=== PATIENT | male | born 1950 | race American Indian/Alaskan Native ===

== ENCOUNTER → 2017-11-04 12:46 | Outpatient (CLI) | payer MEDICARE, OTHER, SELFPAY ==
--- NOTE | 2017-11-04 | DI.US.S_ITS ---
PROCEDURE: US ABD AORTA ANEURYSM SCREEN INDICATIONS: AAA SCREEN TECHNIQUE: Real time scanning was performed of the aorta and iliac arteries, with image documentation. COMPARISON: None. FINDINGS: Aorta: Proximal aorta is obscured by bowel gas. Mid-aorta measures 2.0 cm. Distal aortic diameter is 1.7 cm. Iliac arteries: Right common iliac artery measures 1.0 cm. Left common iliac artery measures 0.1 cm. IMPRESSION: Negative for aneurysm. Proximal aorta is obscured Dictated by: Ian Horner M.D. on 11/04/2017 at 13:38 Approved by: Ian Horner M.D. on 11/04/2017 at 13:39
== END ==
PROVIDERS: Family Provider Family Medicine; PCP Family Medicine; Visit Provider Family Medicine
DX: Z13.6 Encounter for screening for cardiovascular disorders (principal)
CPT/HCPCS: 76706

== ENCOUNTER → 2020-08-20 10:44 | Outpatient (CLI) | payer MEDICARE, SELFPAY ==
[2020-08-20] MEDS: COVID-19 VACC, Ad26(JANSSEN)/PF 0.5 ML IM (10:55)
== END ==
PROVIDERS: Visit Provider Internal Medicine
DX: Z23 Encounter for immunization (principal)
CPT/HCPCS: 0031A; 91303

== ENCOUNTER → 2023-08-31 10:26 | Outpatient (CLI) | payer MEDICARE, SELFPAY ==
[2023-08-31 11:13] LABS: Add Manual Diff / Slide Review NO; Basophils Absolute Auto 0 /uL (0-100); Basophils Percent Auto 0.3 % (0-2); Eosinophils Absolute Auto 300 /uL (0-450); Eosinophils Percent Auto 3.7 % (2-4); Hematocrit 44.8 % (41-53); Hemoglobin 15.2 g/dL (13.5-17.5); Lymphocytes Absolute Auto 1300 /uL (1100-4500); Lymphocytes Percent Auto 17.4 % (25-40); Mean Corpuscular HGB Conc 33.8 % (30-36); Mean Corpuscular Hemoglobin 35.1 PG (26-34); Mean Corpuscular Volume 103.7 fL (80-100); Monocytes Absolute Auto 1300 /uL (0-900); Monocytes Percent Auto 17.1 % (3-14); Neutrophils Absolute Auto 4600 /uL (1500-7000); Neutrophils Percent Auto 61.5 % (50-75); Platelet Count 180 X10^3/uL (150-400); Red Blood Cell Count 4.32 X10^6/uL (4.5-5.9); Red Cell Distribution Width 13.5 % (11.6-14.8); White Blood Cell Count 7.4 X10^3/uL (4.5-11.0)
[2023-08-31 11:50] LABS: Alanine Aminotransferase 15 IU/L (<50); Albumin 4.1 g/dL (3.5-5.0); Albumin Globulin Ratio 1.3 (1.0-2.8); Alkaline Phosphatase 105 U/L (38-126); Aspartate Aminotransferase 24 IU/L (17-59); BUN Creatinine Ratio 17.3 (6-22); Bilirubin Total 0.8 mg/dL (0.2-1.3); Blood Urea Nitrogen 13 mg/dL (9-20); Calcium 9.5 mg/dL (8.4-10.2); Carbon Dioxide 31 mmol/L (22-32); Chloride 107 mmol/L (98-107); Cholesterol 186 mg/dL (140-199); Estimated Glomerular Filt Rate > 60 mL/min (>60); Globulin 3.2 g/dL (1.7-4.1); Glucose 111 mg/dL (80-110); HDL Cholesterol 64 mg/dL (40-60); HEMOLYSIS < 15 (0-50); LDL Cholesterol Calculated 104 mg/dL (<100); Potassium 3.7 mmol/L (3.4-5.1); Sodium 141 mmol/L (137-145); Total Protein 7.3 g/dL (6.3-8.2); Triglycerides 88 mg/dL (35-150)
[2023-08-31 16:31] LABS: Hep C Virus Ab w/Reflex Quant NEGATIVE s/c (NEGATIVE)
== END ==
PROVIDERS: PCP Family Medicine; Referring Provider Family Medicine; Visit Provider Family Medicine
DX: E78.5 Hyperlipidemia, unspecified (principal); Z13.220 Encounter for screening for lipoid disorders; Z11.59 Encounter for screening for other viral diseases; E87.8 Other disorders of electrolyte and fluid balance, not elsewhere classified; Z13.9 Encounter for screening, unspecified; D64.9 Anemia, unspecified
CPT/HCPCS: 36415; 80053; 80061; 85025; 86803

== ENCOUNTER → 2024-04-08 17:13 | Outpatient (CLI) | payer MEDICARE, SELFPAY ==
[2024-04-08 17:51] LABS: Crystals Body Fluid - IN-HOUSE NONE Present
[2024-04-08 17:54] LABS: Body Fluid Red Blood Cells 68301 /uL; Body Fluid Tot Nucleated Cells 217 /uL
[2024-04-08 18:37] LABS: Body Fluid Appearance CLOUDY; Body Fluid Clotted? NO CLOTS PRESENT; Body Fluid Color BLOODY
[2024-04-08 19:15] LABS: Lymphocytes Body Fluid 79 %; Neutrophils Body Fluid 21 %
== END ==
PROVIDERS: PCP Family Medicine; Referring Provider Family Medicine; Visit Provider Family Medicine
DX: M25.422 Effusion, left elbow (principal); S88.111D Complete traumatic amputation at level between knee and ankle, right lower leg, subsequent encounter; S88.111A Complete traumatic amputation at level between knee and ankle, right lower leg, initial encounter; G54.6 Phantom limb syndrome with pain
CPT/HCPCS: 87070; 87075; 87205; 89051; 89060

== ENCOUNTER 2025-04-14 15:52 | Emergency (ER) | payer MEDICARE, SELFPAY ==
[2025-04-14 15:55] VITALS: BP 140/69; PULSE 62; RESP 18; TEMP 36.9; O2SAT 98; BMI 24.4
--- NOTE | 2025-04-14 16:04 | ED_ITS ---
HPI - Extremity Problem
--- NOTE | 2025-04-14 16:04 | ED.EXTPRO ---
HPI - Extremity Problem <Lexus Dee PA-C - Last Filed: 04/14/25 19:06> General Chief complaint: Extremity Problem,Nontraumatic Stated complaint: PC ref , poss blood clot Time Seen by Provider: 04/14/25 15:57 Source: patient Mode of arrival: Ambulatory History of Present Illness HPI Narrative: Mr. Clayton is a pleasant 74-year-old male with a past medical history of right BKA following a trauma in 2007 who presents to the emergency department for DVT rule out for concern of pain and swelling behind the right knee x1 week. Patient denies any injury or change to his prosthetic device that precipitated the symptoms. He is now having pain and swelling behind the right knee. No fevers, chills, redness or skin changes. No history of VTE. No chest pain or shortness of breath, flu-like symptoms, abdominal pain, groin pain, or other concerns. He denies recent fall, trauma, history of hemorrhagic stroke, recent surgery, GI bleeding, or any other bleeding concerns. Related Data Previous Rx's ?Medication ?Instructions ?Recorded Prosthetic liners #12 ea 09/15/23 replacement of prosthesis or major #1 ea 06/23/24 component socket tadalafil 10 mg tablet 10 mg PO DAILY PRN sexual activity 12/30/24 #30 tabs topiramate 200 mg tablet 200 mg PO QID #360 tabs 01/09/25 gabapentin 600 mg tablet 1,200 mg (2 x 600 mg) PO 3XD #540 01/20/25 tabs nortriptyline 25 mg capsule 25 mg PO BEDTIME #30 caps 03/29/25 apixaban 5 mg (74 tabs) tablets in See Rx Instructions PO .COMPLEX 04/14/25 a dose pack (Eliquis DVT-PE Treat #74 ea 30D Start) Allergies Allergy/AdvReac Type Severity Reaction Status Date / Time No Known Drug Allergies Allergy Verified 04/14/25 15:55 Review of Systems <Lexus Dee PA-C - Last Filed: 04/14/25 19:06> Review of Systems ROS Unobtainable: All systems reviewed & are unremarkable except as noted in HPI and below Patient History <Lexus Dee PA-C - Last Filed: 04/14/25 19:06> Medical History Hearing decreased Measles Surgical History Myxoma Family History Father Cancer Mother Dementia History of heart disease Brother Stroke Grandfather Cancer Social History Tobacco: How many years used: 32 alcohol intake: current substance use type: does not use Exam <Lexus Dee PA-C - Last Filed: 04/14/25 19:06> Narrative Exam Narrative: GENERAL: 74 year old patient appears stated age. Well-developed patient, in no acute distress. HEAD: Atraumatic. Normocephalic. EYES: No scleral icterus. No injection or drainage. ENT: Nose without bleeding, purulent drainage. Throat without erythema, tonsillar hypertrophy or exudate. Airway patent. NECK: Trachea midline. Cervical ROM intact. CARDIOVASCULAR: Regular rate RESPIRATORY: ?Nonlabored respirations. ?Speaking in clear, full sentences. ? EXTREMITIES: Right BKA. Prosthetic removed. No erythema or color change of the patient's stump. He does have tenderness to palpation of the right popliteal fossa. No edema of the leg compared to the left leg. NEURO: AOx3. ?Clear speech. ?Moves all 4 extremities appropriately. SKIN: No rash or erythema of visible areas. Initial Vital Signs Initial Vital Signs: Vital Signs Temperature 98.5 F 04/14/25 15:55 Pulse Rate 62 04/14/25 15:55 Respiratory Rate 18 04/14/25 15:55 Blood Pressure 140/69 04/14/25 15:55 Pulse Oximetry 98 04/14/25 15:55 Oxygen Delivery Method Room Air 04/14/25 15:55 <Madeleine Lamb DO - Last Filed: 04/17/25 13:20> Initial Vital Signs Initial Vital Signs: Vital Signs Temperature 98.5 F 04/14/25 15:55 Pulse Rate 62 04/14/25 15:55 Respiratory Rate 18 04/14/25 15:55 Blood Pressure 140/69 04/14/25 15:55 Pulse Oximetry 98 04/14/25 15:55 Oxygen Delivery Method Room Air 04/14/25 15:55 Course <Lexus Dee PA-C - Last Filed: 04/14/25 19:06> Orders Ordered: Discontinued Medications Acetaminophen (Acetaminophen 650 Mg Supp) 650 mg HI NOW ONE Stop: 04/14/25 16:15 Last Admin: 04/14/25 17:09 Dose: Not Given Documented By: RUBY Acetaminophen (Acetaminophen 325 Mg Tablet) 650 mg PO NOW ONE Stop: 04/14/25 17:00 Last Admin: 04/14/25 17:11 Dose: 650 mg Documented By: RUBY Apixaban (Apixaban 5 Mg Tablet) 10 mg PO NOW ONE Stop: 04/14/25 18:08 Last Admin: 04/14/25 18:16 Dose: 10 mg Documented By: MARAH Ibuprofen (Ibuprofen 400 Mg Tablet) 400 mg PO NOW ONE Stop: 04/14/25 16:15 Last Admin: 04/14/25 17:11 Dose: Not Given Documented By: RUBY Vital Signs Vital signs: Vital Signs - 8 hr 04/14/25 15:55 04/14/25 18:18 Temperature 98.5 F Pulse Rate 62 64 Respiratory Rate 18 Blood Pressure 140/69 131/95 H Pulse Oximetry 98 92 Oxygen Delivery Method Room Air Room Air <Madeleine Lamb DO - Last Filed: 04/17/25 13:20> Orders Ordered: Discontinued Medications Acetaminophen (Acetaminophen 650 Mg Supp) 650 mg HI NOW ONE Stop: 04/14/25 16:15 Last Admin: 04/14/25 17:09 Dose: Not Given Documented By: RUBY Acetaminophen (Acetaminophen 325 Mg Tablet) 650 mg PO NOW ONE Stop: 04/14/25 17:00 Last Admin: 04/14/25 17:11 Dose: 650 mg Documented By: RUBY Apixaban (Apixaban 5 Mg Tablet) 10 mg PO NOW ONE Stop: 04/14/25 18:08 Last Admin: 04/14/25 18:16 Dose: 10 mg Documented By: MARAH Ibuprofen (Ibuprofen 400 Mg Tablet) 400 mg PO NOW ONE Stop: 04/14/25 16:15 Last Admin: 04/14/25 17:11 Dose: Not Given Documented By: RUBY Vital Signs Vital signs: Vital Signs - 8 hr 04/14/25 15:55 04/14/25 18:18 Temperature 98.5 F Pulse Rate 62 64 Respiratory Rate 18 Blood Pressure 140/69 131/95 H Pulse Oximetry 98 92 Oxygen Delivery Method Room Air Room Air MDM - Extremity (Nontraumatic) <Lexus Dee PA-C - Last Filed: 04/14/25 19:06> Medical Records Attestation: I reviewed the patient's medical records. MDM Narrative Medical decision making narrative: 74-year-old male with a past medical history of right BKA following a trauma in 2007 who presents to the emergency department for DVT rule out for concern of pain and swelling behind the right knee x1 week. Differential diagnosis includes but isn't limited to DVT, SVT, Franco's cyst, knee arthritis, etc. On exam patient is in no acute distress, nontoxic-appearing, all vital signs within normal limits. He has tenderness to palpation of the right popliteal fossa. Given tenderness, patient sensation of swelling, we will obtain venous ultrasound and x-ray right knee. We will treat pain with Tylenol. Knee x-ray reveals stable interval exam, there is arthritic change, no erosions. Ultrasound reveals an acute DVT from the popliteal vein to the mid thigh portion. Patient is not experiencing any chest pain shortness of breath or other symptoms. We will treat with Eliquis 10 mg b.i.d. x7 days followed by Eliquis 5 mg b.i.d. Patient was prescribed 1st 30 days, informed him that he will need likely minimum 3 months however his primary care doctor we will discuss further treatment with him. Reviewed bleeding risk factors and also discussed the importance of avoiding falls in his subsequent injuries. Discussed strict ER return precautions if he were to develop any chest pain shortness of breath or other concerns. He verbalized understanding of all information agreeable with the plan, 1st dose given in the ED, he is ambulatory and stable for discharge home. Discharge Plan Departure Patient Disposition: Home Clinical Impression: DVT (deep venous thrombosis) Qualifiers: DVT location: lower extremity Affected thrombotic vein of extremity: popliteal Chronicity: acute Laterality: right Qualified Code(s): I82.431 - Acute embolism and thrombosis of right popliteal vein Instructions: DI for Deep Vein Thrombosis Activity Restrictions/Additional Instructions: Dear Mr. Clayton, Thank you for coming to the emergency department. Today you were evaluated for pain behind your right knee. Ultrasound of your leg did show a blood clot in the leg. We have started you on blood thinners called Eliquis. You will need to be on this medication for at least 3 months. You have been prescribed the 1st month. Please follow up with your primary care doctor, Dr. Jean, as soon as possible for further evaluation and management. Return to the emergency department immediately if you develop chest pain, difficulty breathing, severe leg pain or any other concerns. Please follow up with your primary care doctor within the next 2-3 days for ER follow-up. (If you do not have a PCP you can call [phone]. ?to schedule an appointment with an [facility] Primary Care Provider) IF YOU DEVELOP ANY NEW OR WORSENING SYMPTOMS, RETURN TO THE ER! Please read the attached instructions, they highlight more specific treatments and interventions for you at home. Thank you for letting me participate in your care, Lexus Dee PA-C Prescriptions: New Eliquis DVT-PE Treat 30D Start 5 mg (74 tabs) tablets,dose pack See Rx Instructions .ROUTE .COMPLEX Qty: 74 0RF Rx Instructions: orally per package directions No Action tadalafil 10 mg tablet 10 mg PO DAILY PRN (Reason: sexual activity) Qty: 30 1RF Rx Instructions: administer approximately 30min before sexual activity; do not use more than 1 dose per 24hrs (DME) Prosthetic liners See Rx Instructions .Route .MEDSUPPLY Qty: 12 0RF Rx Instructions: As directed (DME) replacement of prosthesis or major component socket See Rx Instructions .Route .MEDSUPPLY Qty: 1 0RF Rx Instructions: Per orthopedic provider topiramate 200 mg tablet 200 mg PO QID Qty: 360 3RF gabapentin 600 mg tablet 1,200 mg PO 3XD Qty: 540 1RF nortriptyline 25 mg capsule 25 mg PO BEDTIME Qty: 30 2RF Referrals: bAiodun Jean MD [Primary Care Provider, Family Practice] Stand Alone Forms: Patient Portal/API ED Sign-out <Madeleine Lamb DO - Last Filed: 04/17/25 13:20> Cosign ED Attending Cosfazalature Attestation: I was consulted in regards to care of this patient and I agree with Eliquis and outpatient management. I was available for consultation.
--- NOTE | 2025-04-14 16:11 | DI.US.S_ITS ---
PROCEDURE: US PERIPH VENOUS LOW EXTREM RT
--- NOTE | 2025-04-14 16:11 | DI.RAD.S_ITS ---
PROCEDURE: XR KNEE RT 1TO2V
[2025-04-14] MEDS: ACETAMINOPHEN 325 MG TABLET 650 MG PO (17:11)
[2025-04-14] MEDS: APIXABAN 5 MG TABLET 10 MG PO (18:16)
[2025-04-14 18:18] VITALS: BP 131/95; PULSE 64; O2SAT 92
== END 2025-04-14 18:18 | disposition home or self-care (01) ==
PROVIDERS: Emergency Provider Physician Assistant; PCP Family Medicine
DX: I82.431 Acute embolism and thrombosis of right popliteal vein (principal)
CPT/HCPCS: 73560; 93971; 99283